=== PATIENT | female | born 1990 | race African-American/Black ===

== ENCOUNTER 2024-07-13 09:50 | Emergency (ER) | payer OTHER, SELFPAY ==
[2024-07-13 09:56] VITALS: BP 114/76; PULSE 75; RESP 16; TEMP 36.9; O2SAT 100
[2024-07-13 11:06] LABS: EDCOVIDSCREEN Negative (Negative); EDINFLUASCREEN Negative (Negative); EDINFLUBSCREEN Negative (Negative); EDSTREPNEGPOS1 Negative (Negative)
--- NOTE | 2024-07-13 17:31 | ED.URI ---
HPI - URI/Sore Throat General Chief Complaint: Upper Respiratory Infection Stated Complaint: wants covid test Time Seen by Provider: 07/13/24 10:04 Source: patient, RN notes reviewed and old records reviewed Mode of arrival: ambulatory Limitations: no limitations History of Present Illness HPI Narrative: 33-year-old female to Express Care with complaint of sore throat, headache, hot and cold chills for 3 days. Patient denies fever, chest pain, difficulty swallowing, allergies, pertinent medical history. Patient has attempted to trees self at home with warm tea with honey and [place]. Patient also endorsing recent onset of right ear pain and fullness. Patient requesting COVID test. Patient sitting in exam room in no acute distress. Respirations even and nonlabored. Patient appears tired. Related Data Home Medications Medication Instructions Recorded Confirmed cephalexin 500 mg capsule 500 mg PO DAILY 07/13/24 07/13/24 norethindrone 1 mg-ethinyl 1 tablet PO DAILY 07/13/24 07/13/24 estradiol 20 mcg (21)-iron 75 mg (7) tablet (Aurovela Fe 1-20 (28)) Allergies Allergy/AdvReac Type Severity Reaction Status Date / Time No Known Allergies Allergy Verified 07/13/24 10:12 Review of Systems Review of Systems: All systems reviewed & are unremarkable except as noted in HPI and below Constitutional: Constitutional: Reports as per HPI, Reports chills, Reports excessive sweating and Reports headache(s) Eyes: Eyes: Reports no additional eye complaints ENT: Reports as per HPI, Reports otalgia ( Right) and Reports sore throat Cardiovascular: Cardiovascular: Reports no additional cardiovascular complaints, Denies chest pain and Denies dyspnea Respiratory: Respiratory: Reports no additional respiratory complaints, Denies cough and Denies dyspnea Musculoskeletal: Musculoskeletal: Reports no additional musculoskeletal complaints Neurologic: Reports system reviewed and no additional complaints, except as documented Psychiatric: Psychiatric: Reports no additional psychiatric complaints PMFSH Comments At the time of my signature, I reviewed and agree with the nursing past medical, surgical, social, and family history. There is no relevant family history pertinent to the patient complaint. Exam Const: General: cooperative, no acute distress, well developed, alert, tired appearing, well groomed and well nourished Nutritional Appearance: well nourished Orientation/consciousness: patient oriented x3 Limitations: no limitations HENMT: Head: normal to inspection Ears: external ears normal Face/Nose/Sinus: Normal external nose present, Normal nares present, normal facial exam, No erythema and No edema Face and sinus: normal facial exam, no erythema and no edema Mouth: Yes Normal oral and palatal mucosa present Throat: posterior oropharynx abnormal erythema Eyes: General: appearance normal, both eyes and all related structures Neck: Neck: normal visual inspection, full ROM and no meningeal signs Lymphatic: no lymphadenopathy noted and no lymphedema noted Chest: Chest palpation & inspection: normal inspection of the chest Resp: Effort & Inspection: normal respiratory effort and able to speak in complete sentences Auscultation: clear to auscultation bilaterally Cardio: Jugular venous distension: no JVD Rate: regular rate Rhythm: regular rhythm Back/Spine/Pelvis: Cervical Spine: cervical ROM normal Skin: General skin exam: normal color, no rashes or lesions noted and turgor normal Neuro: General: patient oriented x3, gait normal, moves all extremities and no meningeal signs Speech: normal speech Gait exam (Neuro): Normal gait present Extrem: General: normal to inspection, full ROM and capillary refill normal Psych: Appearance: grossly normal and well kempt Course Course Emergency Course: Some parts of this dictation were generated by voice recognition software and may contain typographical and/or gram
== END 2024-07-13 10:55 | disposition home or self-care (01) ==
PROVIDERS: Emergency Provider Nurse Practitioner Family; PCP Nurse Practitioner Family
DX: J06.9 Acute upper respiratory infection, unspecified (principal); Z20.822 Contact with and (suspected) exposure to COVID-19
CPT/HCPCS: 87081; 87635; 87804; 87880; 99213; G0463

== ENCOUNTER 2025-07-11 10:13 | Emergency (ER) | payer OTHER, SELFPAY ==
--- NOTE | ~2025-07-11 | XR_ITS ---
Abdominal radiograph(s) INDICATION: Abdominal pain COMPARISON: None TECHNIQUE: 2 views supine AP abdomen FINDINGS: Lung bases clear. Scattered colonic gas and stool. Scattered small bowel gas. Liver mildly enlarged. No abnormal abdominal calcifications. No acute bony abnormality. IMPRESSION: 1. Unremarkable. Reviewed, dictated and finalized at location R. IMPRESSION: 1. Unremarkable.
[2025-07-11 10:18] VITALS: BP 125/88; PULSE 73; RESP 14; TEMP 36.8; O2SAT 100
--- NOTE | 2025-07-11 10:38 | ED_ITS ---
HPI - General Adult General Chief complaint: Abdominal Pain Stated complaint: weak/stomach pains Time Seen by Provider: 07/11/25 10:32 Source: patient, RN notes reviewed and old records reviewed Mode of arrival: ambulatory Limitations: no limitations History of Present Illness HPI narrative: 34 year old female who presents to [facility] care with complaints of feeling weak, being hot and cold, and having abdominal pain off and on since yesterday. Patient reports that she works overnights at her job and she did go to work last evening but had to leave early because of the pain. Patient reports no known fevers. She states that her pain is at the umbilicus region and comes and goes sharp pain. Patient denies any nausea or vomiting or any diarrhea.Patient reports that is on Medroxyprogesterone injections every 3 months with last dose in March states is about due for shot, states that she has some spotting. Patient reports that she has no burning, pain or any urgency with urination.Patient has not taken any OTC medications for her discomfort. MD complaint: abdominal pain across the umbilical area. Onset (ago): day(s) (yesterday) Location: abdomen (across umbilical area) Radiation: non-radiation Severity: moderate Severity scale (1-10): 7 Quality: aching Treatments prior to arrival: none Related Data Home Medications ?Medication ?Instructions ?Recorded ?Confirmed ?Last Taken ?Type duloxetine 40 mg capsule,delayed mg PO 07/11/25 Unkno wn History release medroxyprogesterone 150 mg/mL mg IM 07/11/25 Unknown History intramuscular syringe Allergies Allergy/AdvReac Type Severity Reaction Status Date / Time No Known Allergies Allergy Verified 07/11/25 10:35 Review of Systems Review of Systems: CONSTITUTIONAL: Denies fever reports feeling hot and cold. EYES: Denies visual changes, redness, or discharge. ENT: Denies rhinorrhea, congestion, sore throat, or otalgia. CARDIOVASCULAR: Denies chest pain, palpitations, or edema. RESPIRATORY: Denies cough or dyspnea. GASTROINTESTINAL: Positive for pain around umbilicus area, abdominal pain intermittent sharp,no nausea, vomiting, or diarrhea. GENITOURINARY: Denies dysuria or hematuria. SKIN: Denies rash or itching. MUSCULOSKELETAL: Denies back pain, joint pain, or myalgia. NEUROLOGIC: Denies headache, numbness, states feels weak. PSYCHIATRIC: Positive for anxiety or depression. All systems reviewed & are unremarkable except as noted in HPI and below PMFSH Past Medical History Medical History Anxiety and depression Social History Social History Smoking status: Never smoker Alcohol intake: current Alcohol use details: social Comments At time of signature, agree with nursing past medical, surgical, social and family history. There is no relevant family history pertinent to the presenting complaint Exam Narrative: GENERAL: Well-appearing, well-nourished, and in some acute distress. HEAD: Normocephalic, atraumatic. EYES: PERRLA and EOMI. ENT: Nares clear, no rhinorrhea or epistaxis. Mucous membranes moist.TM's normal with good light reflex, throat pink with no swelling NECK: Supple.no lymphadenopathy CHEST: Clear to auscultation. No respiratory distress.SAO2 100% on room air HEART: Regular rate and rhythm. No murmur heard. Normal peripheral pulses. ABDOMEN: Soft, intermittent tenderness at umbilical area at times sharp, nondistended, decreased bowel sounds no McBurney point tenderness, denies any pain to back or to flank area. EXTREMITIES: Normal range of motion. No edema. SKIN: Warm, dry, no rash. NEURO: No focal deficits. Alert and oriented x3. Course Course Emergency Course: Patient is aware of diagnosis, understands and agrees to treatment plan.? Anticipatory guidance given.? Patient agrees to follow-up in ED for further evaluation. Portions of this record may have been created with voice recognition software Level of Care: Express Care Visit Vital Signs Vital signs: Vital Signs Temperature 36.8 C 07/11/25 10:18 Pulse Rate 73 07/11/25 10:18 Respiratory Rate 14 07/11/25 10:18 Blood Pressure 125/88 07/11/25 10:18 Pulse Oximetry 100 07/11/25 10:18 Oxygen Delivery Room Air 07/11/25 10:18 Temperature 36.8 C 07/11/25 10:18 Pulse Rate 73 07/11/25 10:18 Respiratory Rate 14 07/11/25 10:18 Blood Pressure 125/88 07/11/25 10:18 Pulse Oximetry 100 07/11/25 10:18 Oxygen Delivery Room Air 07/11/25 10:18 Reviewed Transfer Transfered to: [facility] ([place] [place] Transportation: Other (per private car refuses ambulance transfer) Transfer rationale: abdominal pain around umbilicus sharp and intermittent Accepting physician: Alton Transfer comments: To [facility] per private car for further evaluation. Medical Decision Making MDM Narrative Medical decision making narrative: Exam findings and imaging show no acute definite indication for her pain, pain has increased since arriving to clinic. Patient reports pain is sharp and rates pain 7-8 which remains around umbical region nonradiating.1207 Report call to [facility] and spoke with Dee charge nurse with VS, PMH, current test results and present condition with Dr Dang accepting patient for transfer. Patient refuses to go by ambulance signed AMA paper in regards to ambulance transfer. Differential Diagnosis Differential Diagnosis: abdominal pain, UTI, ovarian cyst or torsion, appendix,bowel obstruction Medical Records Medical records reviewed: Yes I reviewed the external patient's medical records. Vital Signs Vital Signs: Vital Signs Temperature 36.8 C 07/11/25 10:18 Pulse Rate 73 07/11/25 10:18 Respiratory Rate 14 07/11/25 10:18 Blood Pressure 125/88 07/11/25 10:18 Pulse Oximetry 100 07/11/25 10:18 Oxygen Delivery Room Air 07/11/25 10:18 Temperature 36.8 C 07/11/25 10:18 Pulse Rate 73 07/11/25 10:18 Respiratory Rate 14 07/11/25 10:18 Blood Pressure 125/88 07/11/25 10:18 Pulse Oximetry 100 07/11/25 10:18 Oxygen Delivery Room Air 07/11/25 10:18 reviewed Lab Data Lab results reviewed: Yes I reviewed the patient's lab results. Lab results narrative: urine dip see report reviewed Labs: Lab Results 07/11/25 Range/Units 10:52 POC Urine Color Yellow POC Urine Clarity Cloudy POC Urine pH 8.0 POC Ur Specif [place] 1.020 POC Urine Protein Negative (Negative) POC Ur Glucose (UA) Negative (Negative) POC Urine Ketones Negative (Negative) POC Urine Blood Trace (Negative) POC Urine Nitrite Negative (Negative) POC Urine Bilirubin Negative (Negative) POC Urine Urobilinogen 2.0 POC U Leukocyte Esteras Negative (Negative) reviewed Imaging Data Attestation: I personally reviewed and interpreted this imaging study as follows: My impression: unremarkable exam Radiologist's impression: [facility] [address] [place] [address] XRay Report Signed Patient: Arielle Lima : 1990 MR#: [id number] Age: 34 Acct:[id number] Loc: [facility] ADM Date: 07/11/25Attending Dr: Ordering Physician: Radha Rojas APRN Date of Service: 07/11/25 Procedure(s): XR abdomen/kub 1V Accession Number(s): [id number] cc: Radha Rojas APRN; Lidia, Katelin LICENSED OPTICAL DISPENSER~ Abdominal radiograph(s) INDICATION: Abdominal pain COMPARISON: None TECHNIQUE: 2 views supine AP abdomen FINDINGS: Lung bases clear. Scattered colonic gas and stool. Scattered small bowel gas. Liver mildly enlarged. No abnormal abdominal calcifications. No acute bony abnormality. IMPRESSION: 1. Unremarkable. Reviewed, dictated and finalized at location . Please be advised this is a medical document. It is intended for cdlw-bc-xomb communication. It is written in medical language and may contain unfamiliar abbreviations or verbiage. Medical documents are intended to carry relevant information, facts as evident, and the clinical opinion of the practitioner at the time of the encounter. This report may have been done utilizing a voice recognition system. Attempts have been made to correct errors. However, there may be uncorrected grammatical, spelling, and recognition errors present. The file time of this note does not necessarily represent the time of service. Dictated By: Mark Villarreal MD 07/11/25 1141 Signed By: <Electronically signed by Mark Villarreal MD in > Critical Care Time Critical Care Time Critical Care Time: No Discharge Plan Discharge Clinical Impression: Abdominal pain Qualifiers: Abdominal location: periumbilical Qualified Code(s): R10.33 - Periumbilical pain Patient Disposition: Acute Care Hospital Condition: Stable Patient Language: Moldovan Prescriptions: No Action medroxyprogesterone 150 mg/mL syringe IM duloxetine 40 mg capsule,delayed release(DR/EC) PO Follow-up/Referrals: Lidia,DAYTON Thomason [Primary Care Provider, Unknown] Time of Disposition: 12:15 Quality Светлана Coma Scale Eyes: Open Verbal: Oriented and Alert Motor: Follows Commands Morven Coma Total Score: 15
[2025-07-11 10:59] LABS: EDUAAPPEAR Cloudy; EDUABILI Negative (Negative); EDUABLOOD Trace (Negative); EDUACOLOR1 Yellow; EDUAGLUCOSE Negative (Negative); EDUAKETONE Negative (Negative); EDUALEUKO Negative (Negative); EDUANITRATE Negative (Negative); EDUAPH 8.0; EDUAPROTEIN Negative (Negative); EDUASPGRAVITY 1.020; EDUAUROBILI 2.0
--- OUTSIDE RECORDS SUMMARY | 2025-07-11 11:48 | XMS_ITS | Clinical Summary ---
Author Organization [facility] Address [address] [place] [address] Care Team Providers Care Rubber Compounder Supervisor Name Role Phone Unavailable Primary Care Provider Unavailabl e Source Comments PLEASE NOTE, if this patient is a minor, it may be UNLAWFUL to discuss sensitive information that is contained in these records (such as FAMILY PLANNING, MENTAL HEALTH or SUBSTANCE ABUSE) with the minor patient's parent or other person without the patient's specific authorization.[facility] Social History Tobacco Use Types Packs/Day Years Used Date Smoking Tobacco: Never Assessed Social Connections Answer Date Recorded Social Connections and Isolation 0 04/15/2022 Financial Resource Strain Answer Date R ecorded Financial Resource Strain 0 2021 Stress Answer Date Recorded Stress 0 04/15/2022 Physical Activity Answer Date Recorded Physical Activity 0 04/15/2022 Food Insecurity Answer Date Recorded Food 0 04/15/2022 Transportation Needs Answer Date Record ed Transportation 0 04/15/2022 Housing Stability Answer Date Recorded Housing 0 04/15/2022 Safety and Environment Answer Date Elias rded Safety 0 04/15/2022 Utilities Answer Date Recorded Utilities 0 04/15/2022 Employment Answer Date Recorded Employment 0 04/15/2022 Comments Unknown Sex and Gender Information Value Date Recorded Sex Assigned at Not on file Legal Sex Female 11:28 AM PDT Gender Identity Not on file Sexual Orientation Not on file Plan of Treatment Not on file
--- OUTSIDE RECORDS SUMMARY | 2025-07-11 11:48 | XMS_ITS | Clinical Summary ---
Author Organization [facility] Address [address] [place] [address] Care Team Providers Care Consumer Safety Inspector Name Role Phone Massiel Ch NP Primary Care Provider + [phone] Allergies No known active allergies Medications medroxyPROGESTE Yury (DEPO-PROVERA) 150 mg/mL injection Inject 1 mL (150 mg total) into the muscle as instructed every 3 (three) months Active Active Problems Problem Noted Date Diagnosed Date Abnormal uterine bleeding (AUB) 07/05/2024 Medical History Medical History Date Comments Anemia Anxiety Social History Tobacco Use Types Packs/Day Years Used Date Smoking Tobacco: Never Smokeless Tobacco: Never Tobacco Cessation:Counseling Given: Not Answered AUDIT-C Answer Date Recorded Frequency of Alcohol Consumption Not on file 11/17/2024 Q2: How many drinks containi ng alcohol do you have on a typical day when you are drinking? Patient does not drink Frequency of Binge Drinking Not on file 10/27 Personal Safety Answer Date Recorded Have you ever been in or are you currently in a harmful physical or emotional relationship or is someone making you feel afraid or unsafe? Denies 11/17/2024 Comments No Sex and Gender Information Value Date Recorded Sex Assigned at Not on file Legal Sex Female 2:50 AM TRAFFIC COUNTER Gender Identity Not on file Sexual Orientation Not on file Obstetrics History Last Filed Vital Signs Vital Sign Reading Time Taken Comments Blood Pressure 103/69 11/17/2024 12:11 PM TRAFFIC COUNTER Pulse 74 11/17/2024 12:11 PM TRAFFIC COUNTER Temperature 36.7 C (98 F) 11/17/2024 12:11 PM TRAFFIC COUNTER Respiratory Rate 16 11/17/2024 12:11 PM TRAFFIC COUNTER Oxygen Saturation 100% 11/17/2024 12:11 PM TRAFFIC COUNTER Inhaled Oxygen Concentration - - Weight 55.9 kg (123 lb 3.8 oz) 11/17/2024 12:11 PM TRAFFIC COUNTER Height 167.6 cm (5' 6) 11/17/2024 12:11 PM TRAFFIC COUNTER Body Mass Index 19.89 11/17/2024 12:11 PM TRAFFIC COUNTER Plan of Treatment Health Maintenance Due Date Last Done Comments Cervical Cancer Screening 1988 Depression Screening 1988 Hepatitis C Screening 1988 DTaP/Tdap/Td Vaccine (1 - Tdap) 1999 Varicella Vaccines (1 of 2 - 13+ 2-dose series) 2001 Hepatitis B Screening 2006 Regular Well Visit/Exam 18-64 2006 HPV Vaccines (1 - 3-dose SCD M series) 2015 Covid-19 Vaccine (2 - Pfizer risk series) 11/12/2021 10/22/2021 Influenza Vaccine (#1) 2025 07/07/2016 Pneumococcal vaccine <65 Aged Out No longer eligible based on patient's age to complete this topic Insurance [employer]ETNA [facility] Care Teams Consumer Safety Inspector Relationship Specialty Start Date End Date Massiel Ch NP [address] [place] [address] [facility] [address] [place] [address] PCP - General Nurse Practitioner 07/12/24
--- OUTSIDE RECORDS SUMMARY | 2025-07-11 11:48 | XMS_ITS | Clinical Summary ---
Author Organization [facility] Address [address] [place] [address] Phone Care Team Providers Care Education Intern Name Role Phone Dima Hamilton APRN, [place], Massiel Primary Care Provide r Allergies No known active allergies Medications No known medications Active Problems Problem Noted Date Diagnosed Date Iron deficiency anemia 09/02/2023 Menorrhagia with regular cycle 09/02/2023 Comments Yes Family History Medical History Relation Name Comments Asthma Brother Congestive Heart Failure Father Hypertension Father Seizures Father Stroke Father Arthritis Maternal Grandmother Breast Cancer Maternal Grandmother Cancer Maternal Grandmother Lung Cancer Maternal Grandmother Arthritis Paternal Grandmother Cancer Paternal Grandmother brain t umor Diabetes Paternal Grandmother Hypertension Paternal Grandmother Relation Name Status Comments Brother Father Maternal Grandmother Paternal Grandmother Social History Tobacco Use Types Packs/Day Years Used Date Smoking Tobacco: Former Cigarettes Q uit: 2020 Smokeless Tobacco: Never Alcohol Use Standard Drinks/Week Comments Yes 0 (1 standard drink = 0.6 oz pur e alcohol) very rarely Comments Yes Sex and Gender Information Value Date Recorded Sex Assigned at Not on file Legal Sex Female 12:07 PM CDT Gender Identity Not on file Sexual Orientation Not on file Last Filed Vital Signs Vital Sign Reading Time Taken Comments Blood Pressure 111/74 10/04/2024 1:00 PM GETTER WELDER Pulse 66 10/04/2024 1:00 PM GETTER WELDER Temperature 35.9 C (96.7 F) 10/04/2024 11:57 AM GETTER WELDER Respiratory Rate 16 10/04/2024 2:39 PM GETTER WELDER Oxygen Saturation 100% 10/04/2024 1:00 PM GETTER WELDER Inhaled Oxygen Concentration - - Weight 53.5 kg (118 lb) 10/04/2024 11:57 AM GETTER WELDER Height 167.6 cm (5' 6) 10/04/2024 11:57 AM GETTER WELDER Body Mass Index 19.05 10/04/2024 11:57 AM GETTER WELDER Plan of Treatment Health Maintenance Due Date Last Done Comments Hepatitis C Virus (HCV) Screening 1990 TdaP Immunization 1988 Hepatitis B Immunization (1 of 3 - 19+ 3-dose series) 2007 Pap Smear 2009 Human Papillomavirus (HPV) Immunization (1 - 3-dose SCDM series) 2015 Cervical Cancer Screening (CCS) 2018 HPV/Cotest 2018 Influenza Immunization (#1) 2025 07/07/2016 SARS-COV-2 Immunization ( - season) 2025 10/22/2021 Respiratory Syncytial Virus (RSV) Immunization (Adult) (1 - 1-dose 75+ series) 2063 Meningococcal Immunization (ACWY) Aged Out No longer eligible based on patient's age to complete this topic Pneumococcal Immunization Combined Aged Out No longer eligible based on patient's age to complete this topic Rotavirus Immunization Aged Out No lo nger eligible based on patient's age to complete this topic Insurance MEDICAID [employer] Care Teams Education Intern Relationship Specialty Start Date End Date Massiel Ch V, SPRINKLER DRIVER, MANAGER [place] [facility] , [address] [address] PCP - General Advanced Practice Nurse 08/24/23
--- OUTSIDE RECORDS SUMMARY | 2025-07-11 11:48 | XMS_ITS | Clinical Summary ---
Author Organization [facility] Address [address] [place] [id number] Phone Care Team Providers Care Group Managing Director Name Role Phone Unavailable Primary Care Provider Unavailabl e Allergies No known active allergies Medications DULoxetine (CYMBALTA) [address] capsule Take 40 mg by mouth 1 (one) time each day Active Active Problems Problem Noted Date Diagnosed Date Chronic kidney disease stage 2 04/13/2025 Anxiety 04/13/2025 Vitamin D deficiency 04/13/2025 Resolved Problems Problem Noted Date Diagnosed Date Resolved Date Atrophy of kidney 01/12/2025 04/13/2025 Anemia 01/12/2025 04/13/2025 Encounters Date Type Department Care Team Description 05/31/2025 Telephone [facility] [address] [phone] Domenico Macario MD from Last 3 Months Family History Medical History Relation Comments Kidney disease Father Cancer Maternal Grandmother Hypertension Paternal Grandfather Cancer Paternal Grandmother Diabetes Paternal Grandmother Relation Status Comments Father Maternal Grandmother Alive Paternal Grandfather Alive Paternal Grandmother Alive Social History Tobacco Use Types Packs/Day Years Used Date Smoking Tobacco: Former Cigarettes Smokeless Tobacco: Never Tobacco Cessation:Counseling Given: Not Answered Alcohol Use Standard Drinks/Week Comments Yes 0 (1 standard drink = 0.6 oz pur e alcohol) occasionally Comments Unknown Sex and Gender Information Value Date Recorded Sex Assigned at Not on file Legal Sex Female 1:15 PM [facility] Gender Identity Not on file Sexual Orientation Not on file Last Filed Vital Signs Vital Sign Reading Time Taken Comments Blood Pressure 116/80 01/17/2025 1:55 PM CDT Pulse 83 01/17/2025 1:55 PM CDT Temperature - - Respiratory Rate - - Oxygen Saturation - - Inhaled Oxygen Concentration - - Weight 58.1 kg (128 lb) 01/17/2025 1:55 PM CDT Height 167.6 cm (5' 6) 01/17/2025 1:55 PM CDT Body Mass Index 20.66 01/17/2025 1:55 PM CDT Plan of Treatment Health Maintenance Due Date Last Done Comments Pneumococcal PPSV23 Highest Risk Adult (1 of 3 - PCV13) 2007 COVID-19 Vaccine (2 - season) 2025 Influenza Vaccine (#1) 2025 Insurance PM INTERFACED INSURANCE
== END 2025-07-11 12:15 | disposition short-term general hospital (02) ==
LOC: EXPBETH 10:15
PROVIDERS: Emergency Provider Registered Nurse; PCP Nurse Practitioner Family
DX: R10.33 Periumbilical pain (principal)
CPT/HCPCS: 74018; 81003; 87086; 99213; G0463